=== PATIENT | male | born 1975 | race Caucasian/White ===

== ENCOUNTER → 2017-09-21 | Outpatient (CLI) | payer OTHER ==
[2017-09-21 20:09] LABS: BASO # 0.2 10^3/uL (0.0-0.2); BASO % 1.4 % (0.0-1.0); EOS # 0.2 10^3/uL (0.0-0.50); EOS % 1.6 % (0.0-3.0); HEMATOCRIT 46.6 % (42.0-52.0); HEMOGLOBIN 16.1 g/dl (14.0-18.0); IMMATURE GRANULOCYTE % 0.4 % (0-0); LYMPH # 2.4 10^3/uL (1.5-4.5); LYMPH % 22.8 % (24.0-44.0); MEAN CORPUSCULAR HEMOGLOBIN 30.7 pg (27.0-33.0); MEAN CORPUSCULAR HGB CONC 34.5 g/dl (32.0-36.5); MEAN CORPUSCULAR VOLUME 88.8 fl (80.0-96.0); MONO # 0.9 10^3/uL (0.0-0.8); MONO % 8.9 % (0.0-5.0); NEUTROPHILS # 6.8 10^3/uL (1.8-7.7); NEUTROPHILS % 64.9 % (36.0-66.0); PLATELET COUNT, AUTOMATED 226 10^3/uL (150-450); RED BLOOD COUNT 5.25 10^6/uL (4.30-6.10); RED CELL DISTRIBUTION WIDTH 11.9 % (11.5-14.5); WHITE BLOOD COUNT 10.5 10^3/uL (4.0-10.0)
[2017-09-21 20:47] LABS: ALBUMIN 4.1 GM/DL (3.2-5.2); ALBUMIN/GLOBULIN RATIO 1.17 (1.00-1.93); ALKALINE PHOSPHATASE 58 U/L (45-117); ALT/SGPT 85 U/L (12-78); ANION GAP 8 MEQ/L (8-16); AST/SGOT 56 U/L (7-37); BILIRUBIN,DIRECT 0.2 MG/DL (0.0-0.2); BILIRUBIN,TOTAL 0.5 MG/DL (0.2-1.0); BLOOD UREA NITROGEN 17 MG/DL (7-18); CALCIUM LEVEL 9.3 MG/DL (8.5-10.1); CARBON DIOXIDE LEVEL 27 MEQ/L (21-32); CHLORIDE LEVEL 103 MEQ/L (98-107); CREATININE FOR GFR 0.99 MG/DL (0.70-1.30); FREE T4 0.77 NG/DL (0.76-1.46); GLOMERULAR FILTRATION RATE > 60.0 (>60); GLUCOSE, FASTING 89 MG/DL (70-105); PHOSPHORUS LEVEL 3.8 MG/DL (2.5-4.9); POTASSIUM SERUM 4.3 MEQ/L (3.5-5.1); SODIUM LEVEL 138 MEQ/L (136-145); TOTAL PROTEIN 7.6 GM/DL (6.4-8.2)
== END ==
LOC: M WUC 14:41
DX: I10 Essential (primary) hypertension (principal); R53.83 Other fatigue
CPT/HCPCS: 84443

== ENCOUNTER → 2017-10-11 | Outpatient (REF) | payer OTHER ==
[2017-10-11 13:48] LABS: BASO # 0.1 10^3/uL (0.0-0.2); BASO % 1.7 % (0.0-1.0); EOS # 0.1 10^3/uL (0.0-0.50); HEMATOCRIT 45.5 % (42.0-52.0); HEMOGLOBIN 16.1 g/dl (14.0-18.0); IMMATURE GRANULOCYTE % 0.5 % (0-0); LYMPH # 1.9 10^3/uL (1.5-4.5); LYMPH % 30.2 % (24.0-44.0); MEAN CORPUSCULAR HEMOGLOBIN 30.9 pg (27.0-33.0); MEAN CORPUSCULAR HGB CONC 35.4 g/dl (32.0-36.5); MEAN CORPUSCULAR VOLUME 87.3 fl (80.0-96.0); MONO # 0.6 10^3/uL (0.0-0.8); MONO % 8.8 % (0.0-5.0); NEUTROPHILS # 3.6 10^3/uL (1.8-7.7); NEUTROPHILS % 56.8 % (36.0-66.0); PLATELET COUNT, AUTOMATED 259 10^3/uL (150-450); RED BLOOD COUNT 5.21 10^6/uL (4.30-6.10); RED CELL DISTRIBUTION WIDTH 11.8 % (11.5-14.5); WHITE BLOOD COUNT 6.4 10^3/uL (4.0-10.0)
[2017-10-11 14:08] LABS: ALBUMIN/GLOBULIN RATIO 1.08 (1.00-1.93); ALKALINE PHOSPHATASE 56 U/L (45-117); ALT/SGPT 71 U/L (12-78); ANION GAP 8 MEQ/L (8-16); AST/SGOT 42 U/L (7-37); BILIRUBIN,TOTAL 0.4 MG/DL (0.2-1.0); BLOOD UREA NITROGEN 15 MG/DL (7-18); CALCIUM LEVEL 8.9 MG/DL (8.5-10.1); CARBON DIOXIDE LEVEL 25 MEQ/L (21-32); CHLORIDE LEVEL 104 MEQ/L (98-107); CHOLESTEROL LEVEL 211 MG/DL (<200); CHOLESTEROL RISK RATIO 3.637 (<5); CREATININE FOR GFR 0.86 MG/DL (0.70-1.30); GLOMERULAR FILTRATION RATE > 60.0 (>60); GLUCOSE, FASTING 97 MG/DL (70-100); HDL CHOLESTEROL 58 MG/DL (>40); LDL CHOLESTEROL 78.8 MG/DL (<100); NON-HDL-C 153 MG/DL; POTASSIUM SERUM 4.7 MEQ/L (3.5-5.1); SODIUM LEVEL 137 MEQ/L (136-145); TOTAL PROTEIN 7.7 GM/DL (6.4-8.2); TRIGLYCERIDES LEVEL 371 MG/DL (<150)
[2017-10-11 14:31] LABS: TOTAL 25(OH) VITAMIN D 8.5 NG/ML (30.0-100.0)
[2017-10-12 11:49] LABS: HEPATITIS B SURFACE ANTIGEN NEGATIVE (NEGATIVE)
[2017-10-12 11:56] LABS: HEPATITIS B CORE ANTIBODY IGM NEGATIVE (NEGATIVE)
[2017-10-12 11:57] LABS: HEPATITIS A ANTIBODY IGM NEGATIVE (NEGATIVE)
== END ==
LOC: M SFHCADAM 10:23
DX: I10 Essential (primary) hypertension (principal); R11.2 Nausea with vomiting, unspecified; R10.13 Epigastric pain

== ENCOUNTER → 2017-11-07 | Outpatient (CLI) | payer OTHER ==
[2017-11-07 09:08] LABS: ALBUMIN/GLOBULIN RATIO 1.08 (1.00-1.93); ALKALINE PHOSPHATASE 56 U/L (45-117); ALT/SGPT 46 U/L (12-78); ANION GAP 8 MEQ/L (8-16); AST/SGOT 26 U/L (7-37); BILIRUBIN,TOTAL 0.4 MG/DL (0.2-1.0); BLOOD UREA NITROGEN 18 MG/DL (7-18); CARBON DIOXIDE LEVEL 29 MEQ/L (21-32); CHLORIDE LEVEL 101 MEQ/L (98-107); CREATININE FOR GFR 1.32 MG/DL (0.70-1.30); GLOMERULAR FILTRATION RATE > 60.0 (>60); GLUCOSE, FASTING 104 MG/DL (70-100); SODIUM LEVEL 138 MEQ/L (136-145); TOTAL PROTEIN 7.7 GM/DL (6.4-8.2)
[2017-11-07 09:10] LABS: POTASSIUM SERUM 5.2 MEQ/L (3.5-5.1)
[2017-11-07 13:23] LABS: HEPATITIS B SURFACE ANTIBODY POSITIVE (POSITIVE)
[2017-11-07 13:34] LABS: HEPATITIS B SURFACE ANTIGEN NEGATIVE (NEGATIVE)
[2017-11-07 14:02] LABS: HEPATITIS C VIRUS ABY INDEX 0.1 INDEX (<0.8)
[2017-11-10 10:14] LABS: ANTI-SMOOTH MUSCLE ANTIBODY 10 Units (0-19)
[2017-11-10 10:14] LABS: ANTI-MITOCHONDRIAL ANTIBODY 3.3 Units (0.0-20.0); ANTINUCLEAR ANTIBODIES DIRECT Negative (Negative); HEPATITIS A IgG TOTAL Negative (Negative); IGASUB3 78.8 mg/dL (13.4-97.9); IgA SERUM (part of Subclasses) 406 mg/dL (90-386); LIVER-KIDNEY MICROSOMAL ABY 0.6 Units (0.0-20.0); TISSUE TRANSGLUTAMINASE IgA <2 U/mL (0-3)
== END ==
LOC: M LAB 08:06
DX: K76.0 Fatty (change of) liver, not elsewhere classified (principal)
CPT/HCPCS: 76700

== ENCOUNTER → 2017-11-15 | Outpatient (CLI) | payer OTHER | LOC: M RAD 07:09 | DX: I16.0 Hypertensive urgency (principal); H47.10 Unspecified papilledema | CPT/HCPCS: 70551 ==

== ENCOUNTER 2017-12-15 10:52 | Day surgery (SDC) | payer OTHER ==
[2017-12-15] MEDS: NS 1,000 ML IV (11:38)
[2017-12-15] MEDS ORDERED: PROPOFOL 200 MG/20 ML VIAL As Ordered (11:42)
[2017-12-15] MEDS ORDERED: LIDOCAINE 2% INJ 100 MG/5 ML SDV (FOR ANES.) As Ordered (11:42)
== END 2017-12-15 14:10 | disposition home or self-care (01) ==
LOC: M OPP 10:52
DX: K22.8 Other specified diseases of esophagus (principal); K29.70 Gastritis, unspecified, without bleeding; R10.13 Epigastric pain; K25.9 Gastric ulcer, unspecified as acute or chronic, without hemorrhage or perforation; R11.10 Vomiting, unspecified; K21.9 Gastro-esophageal reflux disease without esophagitis; I10 Essential (primary) hypertension; F32.9 Major depressive disorder, single episode, unspecified; Z79.899 Other long term (current) drug therapy; Z87.891 Personal history of nicotine dependence; Z80.0 Family history of malignant neoplasm of digestive organs
CPT/HCPCS: 43239

== ENCOUNTER → 2018-05-04 | Outpatient (REF) | payer OTHER ==
[2018-05-04 20:12] LABS: TOTAL 25(OH) VITAMIN D 46.3 NG/ML (30.0-100.0)
== END ==
LOC: M SFHCADAM 15:03
DX: E55.9 Vitamin D deficiency, unspecified (principal)
CPT/HCPCS: 82306

== ENCOUNTER 2018-09-11 12:22 | Emergency (ER) | payer OTHER ==
[~2018-09-11] VITALS: Ht 177.8 cm; Wt 90.9 kg
[~2018-09-11 12:22] MED LIST: HYDR25TAB PO; LISI40TAB PO; OMEP40CA2 PO; VITA50005 PO
[2018-09-11] MEDS ORDERED: CITA-231 (12:32)
[2018-09-11] MEDS ORDERED: ROBA500T PO (12:52)
[2018-09-11] MEDS ORDERED: IBUP-1022 PO (12:52)
[2018-09-11 13:18] VITALS: BP 151/95
== END 2018-09-11 13:21 | disposition home or self-care (01) ==
LOC: M ED 12:22
DX: M54.9 Dorsalgia, unspecified (principal); M62.830 Muscle spasm of back; I10 Essential (primary) hypertension; F17.210 Nicotine dependence, cigarettes, uncomplicated

== ENCOUNTER → 2020-10-30 | Outpatient (CLI) | payer BC, OTHER, SELFPAY ==
[~2020-10-30] MED LIST changes: +CITA40TA6; +HYDR-3490 PO; -HYDR25TAB PO; +IBUP-1022 PO; +LISI40TA4 PO; -LISI40TAB PO; -OMEP40CA2 PO; +OMEP40CA97 PO; +ROBA500T PO
--- NOTE | 2020-10-30 08:58 | REP ---
INDICATION: LEFT SHOULDER F/U. COMPARISON: None. TECHNIQUE: Internal rotation, external rotation, axillary and Y-view of the left shoulder FINDINGS: Osseous structures, joint spaces, and surrounding soft tissues are relatively normal for age. No overt arthritic changes. No periarticular calcifications or loose bodies. Subacromial space is normal. No acute fracture or dislocation. IMPRESSION: Age-appropriate left shoulder radiographs. <Electronically signed by Stevie Bryant > 10/30/20 [id number]
== END ==
LOC: M SOG 08:33
PROVIDERS: ATTEND Orthopaedic Surgery Sports Medicine
DX: M75.42 Impingement syndrome of left shoulder (principal)

== ENCOUNTER → 2021-01-06 | Outpatient (CLI) | payer OTHER ==
--- NOTE | 2021-01-06 11:03 | REP ---
INDICATION: IMPINGEMENT SYNDROME OF LT SHOULDER. COMPARISON: Comparison left shoulder radiographs October 30, 2020.. TECHNIQUE: Axial, oblique coronal, and oblique sagittal imaging planes utilized. T1 and T2 weighted scans are included with and without fat saturation in the usual fashion. FINDINGS: Glenohumeral and acromioclavicular joints are normally aligned. There is marrow edema, synovial hypertrophy, and subcortical cyst formation associated with the acromioclavicular joint indicating osteoarthritis. There is some impingement of the musculotendinous junction of the supraspinatus at this level. There is inferolateral spurring the anterior margin of the acromion process as well. A small subacromial subdeltoid bursal effusion is seen. No glenohumeral joint effusion is observed. There is heterogeneous signal intensity in the distal supraspinatus tendon with some swelling consistent with advanced tendinitis tendinosis. No full-thickness cuff lesion is appreciated. There is increased signal intensity in the distal attachment of the infraspinatus tendon and mild tendinosis changes seen in the subscapularis tendon as well. The biceps tendon is in the bony bicipital groove and appears intact. No anterior or posterior labral cartilage disruption is appreciated. The superior labral cartilage appears intact. There is a mild subcortical cyst formation in the posterolateral aspect of the humeral head. IMPRESSION: Advanced supraspinatus and cyst infraspinatus tendinosis. Mild subscapularis tendinosis change. Moderate osteoarthritic changes at the AC joint and some acromion process spurring. <Electronically signed by Dean Quinn > 01/06/21 1100
== END ==
LOC: M RAD 09:49
PROVIDERS: ATTEND Orthopaedic Surgery Sports Medicine
DX: M75.42 Impingement syndrome of left shoulder (principal); M19.012 Primary osteoarthritis, left shoulder

== ENCOUNTER → 2021-03-27 | Outpatient (CLI) | payer OTHER ==
[~2021-03-27] MED LIST changes: -CITA40TA6; +CITA40TA6 PO; +MELO15TA28 PO; +OMEP40CA4 PO; -OMEP40CA97 PO
== END ==
LOC: M LABSMTC 10:23
PROVIDERS: ATTEND Anesthesiology
DX: Z01.818 Encounter for other preprocedural examination (principal); Z11.52 Encounter for screening for COVID-19

== ENCOUNTER 2021-04-01 13:41 | Day surgery (SDC) | payer OTHER ==
[~2021-04-01] VITALS: Ht 177.8 cm; Wt 81.1 kg
[~2021-04-01 13:41] MED LIST changes: +LIDOCAINE 2% 100MG/5ML SDV (FOR ANES.) As Ordered ONE; +LR 1,000 ML IV ONE; +MIDAZOLAM INJ 2MG/2ML VIAL (J2250 PER 1MG) As Ordered ONE; +ceFAZolin SOD 2 GM in IV 1 EA IV ONE; +fentaNYL 100 MCG/2 ML INJECTION (J3010) As Ordered ONE
[2021-04-01] MEDS ORDERED: BUPIVACAINE/EPIN 0.25% 30 ML VIAL As Ordered ONE (13:47)
[2021-04-01] MEDS ORDERED: dexameTHASONE 4 MG/ML 1ML VIAL (J1100 PER 1MG) As Ordered ONE (14:39)
[2021-04-01] MEDS ORDERED: propofoL 200 MG/20 ML VIAL As Ordered ONE (14:39)
[2021-04-01] MEDS ORDERED: ONDANSETRON 4MG/2ML VIAL As Ordered ONE (14:39)
[2021-04-01] MEDS ORDERED: KETOROLAC 60MG 2ML VIAL As Ordered ONE (14:40)
--- NOTE | 2021-04-01 15:18 | ROOPDOC ---
[facility] Report Of Operation Report of Operation DATE OF PROCEDURE: 04/01/21 PREPROCEDURE DIAGNOSES: Left carpal tunnel syndrome. POSTPROCEDURE DIAGNOSES: Same. PROCEDURE PERFORMED: Left open carpal tunnel release. SURGEON: Dr. Jamie Smith MD ONLINE COMMUNITY MANAGER: Rohini, ANESTHESIA: Local/MAC Dr. Vasquez. ESTIMATED BLOOD LOSS: Approximately 10 mL. COMPLICATIONS: None. REMARKS: None. FINDINGS: Unremarkable SPECIMENS REMOVED: None PROCEDURE NOTE: This 46-year-old man had signs and symptoms consistent with left carpal tunnel syndrome. We discussed the pros and cons risks and benefits of nonsurgical versus surgical management. He wished to go ahead with open carpal tunnel release. I marked the left upper extremity he had no further questions.. DESCRIPTION OF PROCEDURE: Patient was brought to the operating theater. They were placed supine on the operating room table. Hand table was used. Limb was prepped and draped in the usual sterile fashion. I used chlorhexidine-based prep solution allowing over 3 minutes drying time prior to draping. 2 g of IV Ancef was given prior to starting the case. Local/MAC anesthesia was used. Preoperative timeout was performed confirming the site the patient and the surgery. I began by infiltrating 5 mL of 0.25 percent Marcaine with epinephrine in and around the proposed incision site. This was on the palmar surface just distal to the wrist crease longitudinally in line with the fourth digit. The incision length was approximately 2 cm. I allowed the local anesthetic time to work. I carried the dissection down through skin and subcutaneous tissue to meticulous hemostasis. I incised the palmar fascia in line with the skin incision. I incised the transverse carpal ligament in line with the skin incision fully proximally and distally. Nerve appeared in continuity throughout the case. I thoroughly irrigated the wound with normal saline. I closed the subcutaneous tissues with 2-0 Vicryl sutures and the skin with 3-0 Ethilon in a horizontal m attress fashion. Wound cleaned with wet and dry dressing followed by application of non stick dressing, 4 x 8 gauze and overwrapped with Quita type dressing. Patient was woken up from their sedation and transferred off the operating room table and taken to postanesthetic care unit in stable condition. All sponge, needle, instrument counts were correct. No complications. The patient is to start immediate hand wrist and elbow exercises but avoid heavy lifting and gripping-type activities for the first 6 weeks. They will be discharged home according to day surgery criteria. They can change the dressing postoperative day 1 and avoid showering over top or getting it wet for the first 14 days. Follow-up in the office in 2 weeks' time. Postoperative wound instructions were given. It was recommended to keep the wound clean and dry. Dressing changes as needed. It was reinforced with the patient that they should call us or be seen immediately for redness, drainage, or fever. Risk factors for harms from taking opioid medications discussed and assessed including but not limited to personal or family history of substance use disorder, anxiety or depression, , age 65 or older, COPD or other underlying respiratory conditions, and renal or hepatic insufficiency. Discussed with patient concerns and determined any harms they may experience or be currently experiencing such as nausea or constipation, feeling sedated or confused, breathing interruptions during sleep, or taking or craving more opioids than prescribed or difficulty controlling use (addiction). Discussed early warning signs of overdose including confusion, sedation, slurred speech, abnormal gait. . JAMIE SMITH MD Apr 01, 2021 15:18
[2021-04-01 15:45] VITALS: BP 114/67
== END 2021-04-01 15:50 | disposition home or self-care (01) ==
LOC: M SDC 13:41
PROVIDERS: ATTEND Orthopaedic Surgery Sports Medicine
DX: G56.02 Carpal tunnel syndrome, left upper limb (principal); I10 Essential (primary) hypertension; F17.210 Nicotine dependence, cigarettes, uncomplicated; F32.9 Major depressive disorder, single episode, unspecified; F41.9 Anxiety disorder, unspecified; K76.0 Fatty (change of) liver, not elsewhere classified; M75.42 Impingement syndrome of left shoulder; M54.2 Cervicalgia; G89.29 Other chronic pain; Z79.899 Other long term (current) drug therapy
CPT/HCPCS: 64721; J0690; J1100; J1885; J2250; J2405; J3010

== ENCOUNTER → 2021-05-29 | Outpatient (CLI) | payer OTHER ==
[~2021-05-29] MED LIST changes: -LIDOCAINE 2% 100MG/5ML SDV (FOR ANES.) As Ordered ONE; -LR 1,000 ML IV ONE; -MIDAZOLAM INJ 2MG/2ML VIAL (J2250 PER 1MG) As Ordered ONE; -ceFAZolin SOD 2 GM in IV 1 EA IV ONE; -fentaNYL 100 MCG/2 ML INJECTION (J3010) As Ordered ONE
== END ==
LOC: M LABSMTC 11:45
PROVIDERS: ATTEND Anesthesiology
DX: Z01.812 Encounter for preprocedural laboratory examination (principal); Z20.822 Contact with and (suspected) exposure to COVID-19

== ENCOUNTER 2021-06-03 07:35 | Day surgery (SDC) | payer OTHER ==
[~2021-06-03] VITALS: Ht 177.8 cm; Wt 83.5 kg
[~2021-06-03 07:35] MED LIST changes: +BUPIVACAINE/EPIN 0.25% 30 ML VIAL As Ordered ONE; +LR 1,000 ML IV ONE; +ceFAZolin SOD 1 GM in D5W MINI-BAG PLUS 50 ML IV SCH
[2021-06-03] MEDS ORDERED: propofoL 200 MG/20 ML VIAL As Ordered ONE (07:51)
[2021-06-03] MEDS ORDERED: LIDOCAINE 2% 100MG/5ML SDV (FOR ANES.) As Ordered ONE (07:51)
[2021-06-03] MEDS ORDERED: MIDAZOLAM INJ 2MG/2ML VIAL (J2250 PER 1MG) As Ordered ONE (07:55)
[2021-06-03] MEDS ORDERED: fentaNYL 100 MCG/2 ML INJECTION (J3010) As Ordered ONE (07:56)
[2021-06-03] MEDS ORDERED: PHENYLephrine 500MCG 5ML (100MCG/ML) SYRINGE As Ordered ONE (09:00)
--- NOTE | 2021-06-03 09:26 | ROOPDOC ---
[facility] Report Of Operation Report of Operation DATE OF PROCEDURE: 06/03/21 PREPROCEDURE DIAGNOSES: Right carpal tunnel syndrome. POSTPROCEDURE DIAGNOSES: Same. PROCEDURE PERFORMED: Right open carpal tunnel release. SURGEON: Dr. Jamie Smith MD FORM BUILDER: ANESTHESIA: Local/MAC Dr. Padron . 5 cc quarter percent Marcaine with epinephrine ESTIMATED BLOOD LOSS: Approximately 5 mL. COMPLICATIONS: None. REMARKS: None. 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 He had previously had good results with left open carpal tunnel release. He wished to go ahead with the right side. Again discussed the pros and cons risks and benefits of surgery. He had no further questions. I marked the right upper extremity.. DESCRIPTION OF PROCEDURE: Patient was brought to the operating theater. They were placed supine on the operating room table. Hand table was used. Limb was prepped and draped in the usual sterile fashion. I used chlorhexidine-based prep solution allowing over 3 minutes drying time prior to draping. 2 g of IV Ancef was given prior to starting the case. Local/MAC anesthesia was used. P reoperative timeout was performed confirming the site the patient and the surgery. I began by infiltrating 5 mL of 0.25 percent Marcaine with epinephrine in and around the proposed incision site. This was on the palmar surface just distal to the wrist crease longitudinally in line with the radial border fourth digit. The incision length was approximately 2 cm. I allowed the local anesthetic time to work. I carried the dissection down through skin and subcutaneous tissue to meticulous hemostasis. I incised the palmar fascia in line with the skin incision. I incised the transverse carpal ligament in line with the skin incision fully proximally and distally. Nerve appeared in continuity throughout the case. I thoroughly irrigated the wound with normal saline. I closed the subcutaneous tissues with 2-0 Vicryl sutures and the skin with 3-0 Ethilon in a horizontal mattress fashion. Wound cleaned with wet and dry dressing followed by application of non stick dressing, 4 x 8 gauze and overwrapped with Quita type dressing. Patient was woken up from their sedation and transferred off the operating room table and taken to postanesthetic care unit in stable condition. All sponge, needle, instrument counts were correct. No complications. The patient is to start immediate hand wrist and elbow exercises but avoid heavy lifting and gripping-type activities for the first 6 weeks. They will be disch arged home according to day surgery criteria. They can change the dressing postoperative day 1 and avoid showering over top or getting it wet for the first 14 days. Follow-up in the office in 2 weeks' time. Postoperative wound instructions were given. It was recommended to keep the wound clean and dry. Dressing changes as needed. It was reinforced with the patient that they should call us or be seen immediately for redness, drainage, or fever.. JAMIE SMITH MD Jun 03, 2021 09:26
[2021-06-03 09:50] VITALS: BP 120/71
== END 2021-06-03 09:51 | disposition home or self-care (01) ==
LOC: M SDC 07:35
PROVIDERS: ATTEND Orthopaedic Surgery Sports Medicine
DX: G56.01 Carpal tunnel syndrome, right upper limb (principal); I10 Essential (primary) hypertension; K21.9 Gastro-esophageal reflux disease without esophagitis; K22.8 Other specified diseases of esophagus; K29.90 Gastroduodenitis, unspecified, without bleeding; F10.20 Alcohol dependence, uncomplicated; F32.9 Major depressive disorder, single episode, unspecified; F41.9 Anxiety disorder, unspecified; G47.00 Insomnia, unspecified; D68.9 Coagulation defect, unspecified; R51.9 Headache, unspecified; G62.9 Polyneuropathy, unspecified; F17.210 Nicotine dependence, cigarettes, uncomplicated; Z79.899 Other long term (current) drug therapy
CPT/HCPCS: 64721; J0690; J2250; J2370; J3010

== ENCOUNTER → 2021-07-16 | Outpatient (CLI) | payer OTHER ==
[~2021-07-16] MED LIST changes: -BUPIVACAINE/EPIN 0.25% 30 ML VIAL As Ordered ONE; -LR 1,000 ML IV ONE; -ceFAZolin SOD 1 GM in D5W MINI-BAG PLUS 50 ML IV SCH
--- NOTE | 2021-07-16 11:18 | REP ---
INDICATION: RT SHOULDER IMPINGEMENT. COMPARISON: None. TECHNIQUE: Multiple views FINDINGS: The glenohumeral and acromioclavicular relationships are within normal limits. There is no acute fracture, dislocation or subluxation. There is an old healed 8th rib fracture. There is no evidence of a destructive osseous lesion. IMPRESSION: No acute abnormality. Findings as described above. <Electronically signed by Vikram Mabry > 07/16/21 [id number]
== END ==
LOC: M SOG 10:12
PROVIDERS: ATTEND Orthopaedic Surgery Sports Medicine
DX: M75.41 Impingement syndrome of right shoulder (principal); Z87.81 Personal history of (healed) traumatic fracture